=== PATIENT | female | born 1950 ===

== ENCOUNTER 2017-12-20 05:55 | Day surgery (SDC) | payer OTHER ==
[2017-12-20] MEDS ORDERED: ULTRACET PO (09:01)
[2017-12-20] MEDS ORDERED: BACTRIM DS TAB1 EACH PO (09:01)
== END 2017-12-20 11:35 | disposition home or self-care (01) ==
LOC: CIR.AMB 05:55
DX: R15.9 Full incontinence of feces (principal)
CPT/HCPCS: 64581; C1778

== ENCOUNTER 2018-01-03 06:00 | Day surgery (SDC) | payer OTHER ==
[~2018-01-03 06:00] MED LIST: BACTRIM DS TAB1 EACH PO; ULTRACET PO
[2018-01-03] MEDS ORDERED: ULTRACET PO (08:33)
== END 2018-01-03 10:55 | disposition home or self-care (01) ==
LOC: CIR.AMB 06:00
DX: R15.9 Full incontinence of feces (principal)
CPT/HCPCS: 64590; C1767